=== PATIENT | female | born 1975 | race Caucasian/White ===

== ENCOUNTER 2017-10-15 14:21 | Emergency (ER) | payer OTHER ==
[~2017-10-15] VITALS: Ht 170.2 cm; Wt 61.2 kg
--- NOTE | 2017-10-15 14:35 | NUR ---
[employer] assumes care. Hands off report received from GOKUL Patel. Patient is AOX4, SMITH, respiration:easy, c/o severe headaches, pending MD [email or web address] time.
[2017-10-15] MEDS ORDERED: ONDANSETRON 4 MG/2 ML VIAL IM ONE (15:00)
[2017-10-15] MEDS ORDERED: HYDROMORPHONE 1 MG/1 ML DISP.SYRIN IM ONE (15:00)
[2017-10-15] MEDS ORDERED: ONDANSETRON 4 MG/2 ML VIAL ONE (15:02)
[2017-10-15] MEDS ORDERED: HYDROMORPHONE 2 MG/1 ML DISP.SYRIN ONE (15:02)
--- NOTE | 2017-10-15 15:28 | NUR ---
Patient is resting comfortably in bed with eyes closed, NAD.
--- NOTE | 2017-10-15 16:23 | NUR ---
Patient discharged to home in stable conditon & steady gait. Written and verbal after care instructions given to patient and spouse. Patient and family verbalized understanding of instructions.
== END 2017-10-15 16:28 | disposition home or self-care (01) ==
LOC: ER 14:21
DX: G43.909 Migraine, unspecified, not intractable, without status migrainosus (principal); Z90.710 Acquired absence of both cervix and uterus
CPT/HCPCS: 70450; A4663; J1170; J2405